=== PATIENT | female | born 1985 | race Caucasian/White ===

== ENCOUNTER 2018-05-09 23:20 | Inpatient (IN) | END 2018-05-11 09:20 | disposition home or self-care (01) | DRG 833 ==

== ENCOUNTER 2018-05-21 14:45 | Emergency (ER) | END 2018-05-21 16:33 | disposition home or self-care (01) ==

== ENCOUNTER 2018-06-02 18:21 | Outpatient (CLI) | END 2018-06-02 18:30 | disposition home or self-care (01) ==

== ENCOUNTER 2018-06-03 08:44 | Inpatient (IN) | END 2018-06-06 15:50 | disposition home or self-care (01) | DRG 788 ==